=== PATIENT | male | born 1980 | race Caucasian/White ===

== ENCOUNTER 2016-11-15 01:58 | Emergency (ER) | payer SELFPAY ==
[~2016-11-15] VITALS: Ht 180.3 cm; Wt 120.0 kg
[2016-11-15] MEDS ORDERED: BUPR-173 PO (02:09)
[2016-11-15] MEDS ORDERED: ALPR1TAB6 PO (02:09)
[2016-11-15 03:26] VITALS: BP 122/86
== END 2016-11-15 03:29 | disposition home or self-care (01) ==
LOC: ED 03:00
DX: S06.0X0A Concussion without loss of consciousness, initial encounter (principal); S09.90XA Unspecified injury of head, initial encounter; Y04.0XXA Assault by unarmed brawl or fight, initial encounter; Y93.89 Activity, other specified; Y92.89 Other specified places as the place of occurrence of the external cause; Y99.8 Other external cause status
CPT/HCPCS: 70450; 70486; 72125; 99284